=== PATIENT | female | born 1985 | race Caucasian/White ===

== ENCOUNTER 2018-12-20 09:05 | Inpatient (IN) | payer MEDICAID, OTHER ==
--- NOTE | 2018-12-20 10:00 | History and Physical Report ---
History of Present Illness Date of admission: 12/20/18 09:05 Chief complaint: scheduled repeat csection History of present illness: 33yo a 39 5/7 weeks presents for scheduled repeat csection. JORY 12/18/18 consistent with 7 wk sono. She reports good movement, no loss of fluid and no vaginal bleeding. She received care at a [facility]. She has had routine care since 7 weeks gestation complicated by a +Quad screen for Down syndrome for which she declined referral to maternal medicine due to finances. She also was treated for influenza with Tamiflu. She is rubella non-immune. Past History Past Surgical History: section - Obstetrical History : 2 Para: 1 Spontaneous Abortions: 2 Number of Living Children: 1 Medications and Allergies Allergies Allergy/AdvReac Type Severity Reaction Status Date / Time No Known Allergies Allergy Unverified 11/04/15 08:18 Home Medications Medication Instructions Recorded Confirmed Last Taken Type Docusate Sodium [Colace CAP] 100 mg PO BID #60 capsule 11/05/15 Unknown Rx Ferrous Sulfate [Feosol 325 MG tab] 325 mg PO TID #90 tablet 11/05/15 Unknown Rx Ibuprofen [Motrin 800 MG tab] 800 mg PO Q8HR PRN #90 tablet 11/05/15 Unknown Rx oxyCODONE /ACETAMINOPHEN [Percocet 1 tab PO Q6HR PRN #30 tablet 11/05/15 Unknow n Rx 5/325 mg] - Obstetrical FHR: auscultation normal Results Result Diagrams: 12/20/18 10:40 All other labs normal. Assessment and Plan - Patient Problems (1) 39 weeks gestation of Current Visit: Yes Status: Acute (2) Previous section Current Visit: Yes Status: Acute Plan to address problem: IVF Routine labs SCDs Ancef 2g IV Informed consent signed and in chart. Proceed to repeat section. (3) Abnormal quad screen Current Visit: Yes Status: Acute
[2018-12-20] MEDS ORDERED: ANCEF/STERILE WATER 2 GM/20 ML 2 GM/20 ML SYRINGE IV NR ×2 (11:00→12:48)
[2018-12-20] MEDS ORDERED: PITOCin/NS 20 UNIT/1000ML DRIP 20 UNITS/1,000 ML BAG IV SCH ×2 (11:00→15:00)
[2018-12-20] MEDS ORDERED: BICITRA PO NR (11:00)
[2018-12-20] MEDS ORDERED: REGLAN IV NR (11:00)
[2018-12-20] MEDS ORDERED: PEPCID IV NR (11:00)
--- NOTE | 2018-12-20 11:07 | Anesthesia Day of Surgery ---
Anesthesia Day of Surgery - Day of Surgery Patient Examined: Yes Patient H&P Reviewed: Yes Patient is NPO: Yes Beta Blockers: No Cardiac Clearance: No Pulmonary Clearance: No Cody's Test: N/A
[2018-12-20] MEDS ORDERED: PHENERGAN PO PRN (11:11)
[2018-12-20] MEDS ORDERED: PHENERGAN PR PRN (11:11)
[2018-12-20] MEDS ORDERED: NARCAN 0.4 MG/1 ML IV PRN (11:11)
[2018-12-20] MEDS ORDERED: ZOFRAN IV PRN (11:11)
--- NOTE | 2018-12-20 11:11 | Anesthesia Consultation ---
Anesthesia Consult and Med Hx - Airway Anesthetic Teeth Evaluation: Good ROM Head & Neck: Adequate Mental/Hyoid Distance: Adequate Mallampati Class: Class II Intubation Access Assessment: Probably Good - Pulmonary Exam CTA: Yes - Cardiac Exam Cardiac Exam: RRR - Pre-Operative Health Status ASA Pre-Surgery Classification: ASA2 Proposed Anesthetic Plan: Epidural, Spinal - Pre-Anesthesia Comment Pre-Anesthesia Comments: complained of prolonged leg numbness after last section, 24 hrs, complaints of right parasthesia low abd to mid thigh - Pulmonary Hx Smoking: No Hx Asthma: No COPD: No Hx Pneumonia: No - Cardiovascular System Hx Hypertension: No - Central Nervous System Hx Seizures: No Hx Psychiatric Problems: No - Endocrine Hx Renal Disease: No Hx End Stage Renal Disease: No Hx Hypothyroidism: No Hx Hyperthyroidism: No - Hematic Hx Anemia: No Hx Sickle Cell Disease: No - Other Systems Hx Alcohol Use: No
[2018-12-20] MEDS: LACTATED RINGERS 1,000 ML IV SCH ×3 (11:45→21:21)
[2018-12-20 11:52] LABS: Basophils # (Auto) 0.1 K/mm3 (0.0-0.1); Basophils % (Auto) 0.8 % (0.0-1.8); Eosinophils # (Auto) 0.1 K/mm3 (0.0-0.4); Eosinophils % (Auto) 0.7 % (0.0-4.3); Hematocrit 33.8 % (30.3-42.9); Hemoglobin 11.3 gm/dl (10.1-14.3); Lymphocytes # (Auto) 1.7 K/mm3 (1.2-5.4); Lymphocytes % (Auto) 20.1 % (13.4-35.0); Mean Corpuscular HGB Conc 34 % (30-34); Mean Corpuscular Volume 92 fl (79-97); Monocytes # (Auto) 0.5 K/mm3 (0.0-0.8); Monocytes % (Auto) 5.9 % (0.0-7.3); Platelet Count 272 K/mm3 (140-440); Red Blood Count 3.69 M/mm3 (3.65-5.03); Red Cell Distribution Width 17.9 % (13.2-15.2)
[2018-12-20] MEDS ORDERED: SODIUM CHLORIDE FLUSH SYRINGE 10 ML IV NR ×2 (12:00→15:00)
[2018-12-20] MEDS ORDERED: XYLOCAINE 2%/ EPI 1:200,000 INFILTRATI ONE (12:21)
[2018-12-20] MEDS ORDERED: ASTRAMORPH PF 10MG/10ML ONE (12:32)
[2018-12-20] MEDS ORDERED: ZOFRAN ONE (12:32)
[2018-12-20] MEDS ORDERED: ceFAZolin 2 GM in NACL 0.9% 100 ML IV ONE (12:48)
[2018-12-20] MEDS ORDERED: LACTATED RINGERS 1,000 ML ONE ×2 (12:59→13:49)
[2018-12-20] MEDS ORDERED: NEO SYNEPHRINE/NS Syringe(OR USE) IV ONE ×2 (12:59→13:38)
[2018-12-20] MEDS ORDERED: METHERGINE IM ONE (13:44)
[2018-12-20] MEDS ORDERED: DILAUDID ONE (13:59)
[2018-12-20] MEDS ORDERED: VERSED ONE (14:11)
[2018-12-20] MEDS ORDERED: LANSINOH TP PRN (14:34)
[2018-12-20] MEDS ORDERED: MORPHINE IV PRN (14:34)
[2018-12-20] MEDS ORDERED: MYLICON PO PRN (14:34)
[2018-12-20] MEDS ORDERED: MILK OF MAGNESIA PO PRN (14:34)
[2018-12-20] MEDS ORDERED: TUCKS PAD TP PRN (14:34)
[2018-12-20] MEDS ORDERED: TORADOL ONE (14:39)
--- NOTE | 2018-12-20 15:02 | Operative Report ---
Operative Report Operative Report: PREOP Diagnosis 1. 39 5/7 weeks gestation 2. Previous section 3. Keloid lesion in previous section scar Postop Diagnosis 1. 39 3/7 weeks gestation 2. Previous section 3. Keloid lesion in previous section scar 4. Small intramural fibroids Procedure: Repeat low-transverse section Findings 1. Viable male in the vertex position, weighing 8lb 10oz, 3903g APGARS 8 at 1 min, 9 at 5 min 2. Small intramural uterine fibroids - right anterior body 3. Normal bilateral tubes 4. membranes adherent to endometrium Surgeon 1. Pam Ahmadi MD Anesthesia: 1. Epidural I/O: EBL: 650ml UOP: 225ml, clear urine IVF 2500ml LR Specimens removed: 1. Placenta - adherent membranes Complications: none Disposition: Patient taken to recovery room in stable condition INDICATIONS: The patient is a 33yo at 39 5/7weeks that presented for scheduled repeat section. The patient was consented and the risks including but not limited to bleeding, infections, injury to surrounding organs, potential injury to mother/infant were discussed. All questions were answered and informed consent signed. STOP PROCEDURE: The patient was taken to the OR in stable condition. Adequate anesthesia was achieved with epidural anesthesia. A adame catheter was placed. She wore SCDs for DVT prophylaxis. And received Ancef for infection prophylaxis. The patient was prepped and draped in the usual fashion and an additional time out was done. A Pfannestiel incision was made over the previous uterine scar. Of note there was a small 1cm keloid scar at the midline of the previous incision. The fascia was incised and the incision extended laterally. The superior and inferior aspect of the rectus muscle was dissected off of the fascia. Entry into the peritoneum was achieved. The incision was extended caudally. An Efra-O retractor was placed into the peritoneal and abdominal cavity. A low-transverse incision made made in the uterus and extended laterally. membranes were ruptured and noted to be clear. The head was brought to the hysterotomy and mouth bulb suctioned. The body was delivered. The cord was clamped x 2, cut and infant handed off to awaiting street photographer staff. The placenta was delivered intact and 40 units of IV Pitocin were added to LR fluids. The membranes were noted to be adhered to the uterus diffusely. The membranes were removed manually. The uterus was cleaned of all clots. The uterus was noted to be boggy and Methergine 0.2mg IM was administered. The uterus was repaired with 0-Vicryl in a running, locked stitch and an imbricating layer of the same suture was used. The fascia was closed with 0 Vicryl. Subcutaneous layer reapproximated with 2-0 Vicryl. The skin closed with 4-0 Vicryl. The patient tolerated the procedure well. All counts were correct x 3. Urine was noted to be clear at close of case. I was present and scrubbed for the entire procedure. The patient was taken to the recovery room in stable condition.
[2018-12-20] MEDS: PERCOCET 5/325 PO PRN (21:22)
[2018-12-21] MEDS: IBUPROFEN PO PRN ×2 (02:37→10:24)
[2018-12-21] MEDS: PERCOCET 5/325 PO PRN ×4 (03:30→21:06)
[2018-12-21] MEDS ORDERED: BENADRYL IV NR (03:44)
[2018-12-21 05:00] LABS: Hemoglobin 8.2 gm/dl (10.1-14.3)
[2018-12-21] MEDS ORDERED: M-M-R II VACCINE SUB-Q ONE (06:35)
[2018-12-21] MEDS ORDERED: BOOSTRIX IM ONE (07:00)
[2018-12-21] MEDS ORDERED: FEOSOL PO ONE (10:00)
--- NOTE | 2018-12-21 10:11 | Progress Note ---
Assessment and Plan A: /postop day 1 S/P repeat low transverse section. Anemia. Heart murmur (new). P: Encouraged ambulation. Iron supplementation ordered. Advance diet when passing gas. Hospitalist consult ordered for new heart murmur. Subjective - Subjective Date of service: 12/21/18 Principal diagnosis: /postop day 1 S/P repeat LTCS Interval history: /postop day 1 S/P repeat low transverse section. Patient is doing well. She reports she is voiding without difficulty. Ambulating well. Not passing gas yet. Tolerating a clear liquid diet without nausea or vomiting. Patient reports small amount of lochia. Patient denies headache, chest pain, cough, shortness of breath, dizziness, leg pain, or heavy vaginal bleeding. Patient reports: appetite normal, voiding normally, pain well controlled, ambulating normally, no dizzy ambulation, no flatus, no nauseated : doing well Objective - Vital Signs Latest vital signs: Vital Signs Temp Pulse Resp BP BP Pulse Ox 12/21/18 01:06 98.7 F 74 18 112/72 12/20/18 19:30 98.7 F 69 16 117/72 12/20/18 16:40 98.1 F 108 H 20 140/62 12/20/18 16:30 97.8 F 66 15 113/50 99 12/20/18 16:00 64 16 115/55 100 12/20/18 15:45 66 14 121/59 99 12/20/18 15:30 97.6 F 73 22 120/60 100 12/20/18 15:15 63 18 114/54 100 12/20/18 15:00 68 18 123/58 100 12/20/18 14:55 61 18 111/57 100 12/20/18 14:50 60 15 124/56 100 12/20/18 14:45 62 21 112/52 92 12/20/18 14:42 97 F L 61 17 130/61 96 12/20/18 12:03 64 115/58 12/20/18 12:01 99.4 F 64 16 115/58 Intake and Output 12/20/18 12/21/18 12/21/18 23:59 07:59 15:59 Output Total 800 1400 Balance -800 -1400 Output: Urine 800 1400 Indwelling Catheter 800 Void 1400 Other: Total, Output Amount 800 600 # Voids Void 1 - Exam Cardiovascular: Present: Regular rate, Other (Murmur heard) Lungs: Present: Clear to auscultation Abdomen: Present: normal appearance, soft, normal bowel sounds. Absent: distention, tenderness, guarding, rigidity Uterus: Present: normal, firm, fundal height below umbilicus Extremities: Present: normal. Absent: tenderness, edema Incision: Present: normal, dry, intact, dressed - Labs Labs: Abnormal lab results 12/20/18 12/21/18 Range/Units 10:40 04:21 Hgb 8.2 L D (10.1-14.3) gm/dl Hct 24.0 L D (30.3-42.9) % RDW 17.9 H (13.2-15.2) % Seg Neutrophils % 72.5 H (40.0-70.0) %
[2018-12-21] MEDS ORDERED: AFLURIA QUAD 2018-2019 SYRINGE IM ONE (12:00)
--- NOTE | 2018-12-21 17:06 | Consultation ---
History of Present Illness - Reason for Consult Consult date: 12/21/18 New heart murmur Requesting physician: REGINA ZEPEDA - History of Present Illness 33-year-old female patient. Underwent uncomplicated repeat low transverse section on 12/20/2018. Today during rounds CNM noticed a new heart murmur. Requested hospitalist service for consult When I evaluated the patient, the patient denies any chest pain or shortness of breath Denies headache dizziness weakness or numbness Patient denies any history of coronary artery disease congestive heart failure or palpitation Past History Past Medical History: No medical history Past Surgical History: Social history: lives with family. denies: smoking, alcohol abuse, prescription drug abuse Family history: hypertension Medications and Allergies Allergies Allergy/AdvReac Type Severity Reaction Status Date / Time No Known Allergies Allergy Unverified 11/04/15 08:18 Home Medications Medication Instructions Recorded Confirmed Last Taken Type Docusate Sodium [Colace CAP] 100 mg PO BID #60 capsule 11/05/15 12/20/18 Unknown Rx Ferrous Sulfate [Feosol 325 MG tab] 325 mg PO TID #90 tablet 11/05/15 12/20/18 Unknown Rx Ibuprofen [Motrin 800 MG tab] 800 mg PO Q8HR PRN #90 tablet 11/05/15 12/20/18 Unknown Rx oxyCODONE /ACETAMINOPHEN [Percocet 1 tab PO Q6HR PRN #30 tablet 11/05/15 Unknown Rx 5/325 mg] Ferrous Sulfate [Feosol 325 MG tab] 325 mg PO BID 30 Days #60 tablet 12/20/18 Unknown Rx Ibuprofen 800 mg PO Q6H PRN 10 Days #30 12/20/18 Unknown Rx tablet MDD 3200mg oxyCODONE /ACETAMINOPHEN [Percocet 1 tab PO Q4HR PRN 14 Days #30 tab 12/20/18 Unknown Rx 5/325] Active Meds: Active Medications Oxytocin/Sodium Chloride (Pitocin/Ns 20 Unit/1000ml Drip) 20 units in 1,000 mls @ 0 mls/hr IV TITR WILLY Oxytocin/Sodium Chloride (Pitocin/Ns 20 Unit/1000ml Drip) 20 units in 1,000 mls @ 250 mls/hr IV DIRECT WILLY Ibuprofen (Motrin) 800 mg PO Q6H PRN PRN Reason: Pain, Mild (1-3) Last Admin: 12/21/18 10:24 Dose: 800 mg Documented by: Magnesium Hydroxide (Milk Of Magnesia) 30 ml PO QHS PRN PRN Reason: Constip Unrelieved By Senna Last Admin: 12/20/18 21:22 Dose: 30 ml Documented by: Morphine Sulfate (Morphine) 4 mg IV Q4H PRN PRN Reason: Pain , Severe (7-10) Multi-Ingredient Ointment (Lansinoh) 1 applic TP PRN PRN PRN Reason: dryness/cracking Naloxone HCl (Narcan 0.4 Mg/1 Ml) 0.2 mg IV Q2MIN PRN PRN Reason: Res Rate </= 8 or 02 SAT < 92% Ondansetron HCl (Zofran) 4 mg IV Q8H PRN PRN Reason: Nausea And Vomiting Last Admin: 12/20/18 21:22 Dose: 4 mg Documented by: Oxycodone/Acetaminophen (Percocet 5/325) 1 tab PO Q6H PRN PRN Reason: Pain, Moderate (4-6) Last Admin: 12/21/18 15:28 Dose: 1 tab Documented by: Promethazine HCl (Phenergan) 25 mg PO Q6H PRN PRN Reason: Nausea And Vomiting Promethazine HCl (Phenergan) [address] Q6H PRN PRN Reason: Nausea And Vomiting Simethicone (Mylicon) 80 mg PO Q6H PRN PRN Reason: Gas pain Sodium Chloride (Sodium Chloride Flush Syringe 10 Ml) 10 ml IV PRN NR Stop: 12/23/18 11:59 Witch Michaela/Glycerin (Tucks Pad) 1 each TP PRN PRN PRN Reason: Hemorrhoids/cleansing/soothing Review of Systems Constitutional: no weight loss, no weight gain, no fatigue, no weakness Ears, nose, mouth and throat: no nasal congestion, no nasal discharge Cardiovascular: no chest pain, no orthopnea, no palpitations, no shortness of breath Respiratory: no cough, no shortness of breath Gastrointestinal: no nausea, no vomiting, no diarrhea Genitourinary Female: other (post ) Musculoskeletal: no myalgias, no arthritis Integumentary: no rash, no lesions Neurological: no weakness Psychiatric: no anxiety, no depression Endocrine: no cold intolerance, no heat intolerance Hematologic/Lymphatic: no easy bruising, no easy bleeding Allergic/Immunologic: no urticaria, no allergic rhinitis Exam - Constitutional Vitals: Temp Pulse Resp BP Pulse Ox 98.7 F 74 18 112/72 99 12/21/18 01:06 12/21/18 01:06 12/21/18 01:06 12/21/18 01:06 12/20/18 16:30 General appearance: Present: no acute distress, well-nourished, obese - EENT Eyes: Present: PERRL, EOM intact - Neck Neck: Present: supple, normal ROM - Respiratory Respiratory effort: normal Respiratory: bilateral: diminished, negative: rales, rhonchi, wheezing - Cardiovascular Rhythm: regular Heart Sounds: Present: S1 & S2, systolic murmur (precordium) - Extremities Extremities: no ischemia, No edema - Abdominal General gastrointestinal: Present: soft, non-tender, non-distended, normal bowel sounds - Integumentary Integumentary: Present: clear, warm - Musculoskeletal Musculoskeletal: strength equal bilaterally - Psychiatric Psychiatric: appropriate mood/affect, cooperative - Neurologic Neurologic: CNII-XII intact, moves all extremities Results - Labs CBC & Chem 7: 12/21/18 04:21 Labs: Abnormal lab results 12/21/18 Range/Units 04:21 Hgb 8.2 L D (10.1-14.3) gm/dl Hct 24.0 L D (30.3-42.9) % Assessment and Plan --New Heart Murmur: Systolic murmur in a female patient Probably secondary to hyperdynamic circulation. Patient is asymptomatic, check echocardiogram Rule out cardiomyopathy, LV function, evaluation of the valves cardiology consultation, And supportive care -- state; management per OB Continue current management. F/U echocardiogram Thank you for this consultation will follow the patient along with you
[2018-12-22] MEDS: IBUPROFEN PO PRN ×3 (06:08→19:05)
--- NOTE | 2018-12-22 09:40 | Consultation ---
History of Present Illness Consult date: 12/22/18 History of present illness: Cardiology consulted for the evaluation of cardiac murmur 33-year-old female patient. Underwent uncomplicated repeat low transverse leilani arean section on 12/20/2018. Today during rounds CNM noticed a new heart murmur. Patient denies cardiac complaints Past History Past Medical History: No medical history Past Surgical History: Social history: lives with family. denies: smoking, alcohol abuse, prescription drug abuse Family history: hypertension Medications and Allergies Allergies Allergy/AdvReac Type Severity Reaction Status Date / Time No Known Allergies Allergy Unverified 11/04/15 08:18 Home Medications Medication Instructions Recorded Confirmed Last Taken Type Docusate Sodium [Colace CAP] 100 mg PO BID #60 capsule 11/05/15 12/20/18 Unknown Rx Ferrous Sulfate [Feosol 325 MG tab] 325 mg PO TID #90 tablet 11/05/15 12/20/18 Unknown Rx Ibuprofen [Motrin 800 MG tab] 800 mg PO Q8HR PRN #90 tablet 11/05/15 12/20/18 Unknown Rx oxyCODONE /ACETAMINOPHEN [Percocet 1 tab PO Q6HR PRN #30 tablet 11/05/15 12/20/18 Unknown Rx 5/325 mg] Ferrous Sulfate [Feosol 325 MG tab] 325 mg PO BID 30 Days #60 tablet 12/20/18 Unknown Rx Ibuprofen 800 mg PO Q6H PRN 10 Days #30 12/20/18 Unknown Rx tablet MDD 3200mg oxyCODONE /ACETAMINOPHEN [Percocet 1 tab PO Q4HR PRN 14 Days #30 tab 12/20/18 Unknown Rx 5/325] Active Meds: Active Medications Oxytocin/Sodium Chloride (Pitocin/Ns 20 Unit/1000ml Drip) 20 units in 1,000 mls @ 0 mls/hr IV TITR WILLY Oxytocin/Sodium Chloride (Pitocin/Ns 20 Unit/1000ml Drip) 20 units in 1,000 mls @ 250 mls/hr IV DIRECT WILLY Ibuprofen (Motrin) 800 mg PO Q6H PRN PRN Reason: Pain, Mild (1-3) Last Admin: 12/22/18 06:08 Dose: 800 mg Documented by: Magnesium Hydroxide (Milk Of Magnesia) 30 ml PO QHS PRN PRN Reason: Constip Unrelieved By Senna Last Admin: 12/20/18 21:22 Dose: 30 ml Documented by: Morphine Sulfate (Morphine) 4 mg IV Q4H PRN PRN Reason: Pain , Severe (7-10) Multi-Ingredient Ointment (Lansinoh) 1 applic TP PRN PRN PRN Reason: dryness/cracking Naloxone HCl (Narcan 0.4 Mg/1 Ml) 0.2 mg IV Q2MIN PRN PRN Reason: Res Rate </= 8 or 02 SAT < 92% Ondansetron HCl (Zofran) 4 mg IV Q8H PRN PRN Reason: Nausea And Vomiting Last Admin: 12/20/18 21:22 Dose: 4 mg Documented by: Oxycodone/Acetaminophen (Percocet 5/325) 1 tab PO Q6H PRN PRN Reason: Pain, Moderate (4-6) Last Admin: 12/21/18 21:06 Dose: 1 tab Documented by: Promethazine HCl (Phenergan) 25 mg PO Q6H PRN PRN Reason: Nausea And Vomiting Promethazine HCl (Phenergan) 25 mg [place] Q6H PRN PRN Reason: Nausea And Vomiting Simethicone (Mylicon) 80 mg PO Q6H PRN PRN Reason: Gas pain Sodium Chloride (Sodium Chloride Flush Syringe 10 Ml) 10 ml IV PRN NR Stop: 12/23/18 11:59 Witch Michaela/Glycerin (Tucks Pad) 1 each TP PRN PRN PRN Reason: Hemorrhoids/cleansing/soothing Review of Systems All systems: negative Physical Examination Vital Signs Temp Pulse Resp BP 99.4 F 64 16 115/58 12/20/18 12:01 12/20/18 12:01 12/20/18 12:01 12/20/18 12:01 General appearance: no acute distress HEENT: Positive: PERRL Neck: Positive: neck supple Cardiac: Positive: Reg Rate and Rhythm, Systolic Murmur Lungs: Positive: Normal Exam Abdomen: Positive: Soft Results 12/21/18 04:21 Assessment and Plan Cardiac murmur Grade 2/6 early peaking at the RUSB Acute blood loss anemia Recommendations: Echocardiogram is warranted but non-urgent. Can be done as inpatient if patient stays in hospital or outpatient in office. Patient given our contact information No further cardiac work-up needed
--- NOTE | 2018-12-22 10:20 | Progress Note ---
Assessment and Plan A: /postop day 2 S/P repeat low transverse section. Anemia secondary to and blood loss. Heart murmur. P: Continue iron supplementation. Continue current management. Patient is awaiting echo. Subjective - Subjective Date of service: 12/22/18 Principal diagnosis: /postop day 2 S/P repeat LTCS Interval history: /postop day 2 S/P repeat low transverse section. Patient is doing well. She reports she is voiding without difficulty. Ambulating well. Passing gas and has had a BM. Tolerating a regular diet without nausea or vomiting. Patient denies headache, chest pain, cough, shortness of breath, dizziness, fatigue, leg pain, abdominal pain, or heavy bleeding. Patient reports: appetite normal, voiding normally, pain well controlled, flatus, bowel movement, ambulating normally, no dizzy ambulation, no nauseated : doing well Objective - Vital Signs Latest vital signs: Vital Signs Temp Pulse Resp BP Pulse Ox 12/22/18 06:08 18 12/22/18 01:40 97.9 F 59 L 18 90/49 96 12/21/18 22:06 18 12/21/18 21:06 18 Intake and Output 12/21/18 12/22/18 12/22/18 23:59 07:59 15:59 Intake Total 300 Balance 300 Intake: Oral 300 Other: Total, Intake Amount 300 # Voids Void 1 - Exam Cardiovascular: Present: Regular rate, Other (Murmur) Abdomen: Present: normal appearance, soft, normal bowel sounds. Absent: distention, tenderness, guarding, rigidity Uterus: Present: normal, firm, fundal height below umbilicus. Absent: bogginess, tenderness Extremities: Present: normal, edema (mild pedal edema bilaterally). Absent: tenderness Incision: Present: normal, dry, intact, dressed
--- NOTE | 2018-12-22 17:15 | Event Note ---
Date: 12/22/18 Cardiology is evaluated new heart murmur, f/u echocardiogram Management per cardiology. We'll sign off.
[2018-12-22] MEDS: PERCOCET 5/325 PO PRN (20:54)
[2018-12-23] MEDS: PERCOCET 5/325 PO PRN ×2 (04:25→13:41)
[2018-12-23] MEDS: IBUPROFEN PO PRN ×2 (04:25→13:41)
--- NOTE | 2018-12-23 10:42 | Progress Note ---
Assessment and Plan A: POD #3 Heart Murmur Asymptomatic Anemia P: Follow Routine PostOp Orders Continue FeSO4 as ordered Cardiology Consulted and Cleared D/C Home today RTO in One Week Subjective - Subjective Date of service: 12/23/18 Principal diagnosis: /postop day 2 S/P repeat LTCS Patient reports: appetite normal, voiding normally, pain well controlled, flatus, ambulating normally, other (Denies shortness of breath and chest pain) : doing well, bottle feeding (and ) Objective - Vital Signs Latest vital signs: Vital Signs Temp Pulse Resp BP BP Pulse Ox 12/23/18 08:17 97.5 F L 56 L 20 102/47 95 12/23/18 01:25 97.5 F L 55 L 18 103/57 12/22/18 19:05 20 12/22/18 18:16 98.7 F 61 20 100/44 97 12/22/18 14:02 98.1 F 71 20 103/52 97 12/22/18 12:56 20 Intake and Output 12/22/18 12/23/18 12/23/18 22:59 06:59 14:59 Intake Total 240 360 Balance 240 360 Intake: Intake, Free Water 240 360 Other: # Voids Void 2 2 - Exam Breasts: Present: normal Cardiovascular: Present: Regular rate Lungs: Present: Clear to auscultation, Normal air movement Abdomen: Present: normal appearance, soft, normal bowel sounds Uterus: Present: normal, firm, fundal height below umbilicus Extremities: Present: normal Incision: Present: normal, dry, intact
--- NOTE | 2018-12-23 10:43 | Discharge Summary ---
Providers - Providers Date of Admission: 12/20/18 09:05 Date of discharge: 12/23/18 Attending physician: ELPIDIO GANN MD 12/21/18 10:08 Consult to Physician [CONS] Urgent Comment: Consulting Provider: HELEN LUU Physician Instructions: Reason For Exam: Heart murmur; /postop day 1 12/21/18 12:29 Consult to Physician [CONS] Routine Comment: Consulting Provider: HEYDI KAMARA Physician Instructions: Reason For Exam: heart murmur (new) Primary care physician: ELPIDIO GANN MD Hospitalization Reason for admission: section Delivery: Procedure: repeat low transverse Episiotomy: none Laceration: none Incision: normal, dry, intact Other procedures: none complications: none Discharge diagnosis: IUP at term delivered baby: male Condition at discharge: Good Disposition: DC-01 TO HOME OR SELFCARE Plan - Discharge Medications Prescriptions: Ferrous Sulfate [Feosol 325 MG tab] 325 mg PO BID 30 Days #60 tablet Ibuprofen 800 mg PO Q6H PRN 10 Days #30 tablet MDD 3200mg PRN Reason: Pain, Moderate (4-6) oxyCODONE /ACETAMINOPHEN [Percocet 5/325] 1 tab PO Q4HR PRN 14 Days #30 tab PRN Reason: Pain , Severe (7-10) - Provider Discharge Summary Activity: routine, no sex for 6 weeks, no heavy lifting 4 weeks Diet: routine Instructions: routine Additional instructions: [] Smoking cessation referral if applicable(refer to patient education folder for contact #) [] Refer to [facility]'s [facility] Booklet Call your doctor immediately for: * Fever > 100.5 * Heavy vaginal bleeding ( >1 pad per hour) * Severe persistent headache * Shortness of breath * Reddened, hot, painful area to leg or breast * Drainage or odor from incision. * Keep incision clean and dry at all times and follow doctor's instructions regarding bathing/showering - Follow up plan Follow up: ELPIDIO GANN MD [Primary Care Provider] - 7 Days
[2018-12-23] MEDS ORDERED: M-M-R II VACCINE SUB-Q ONE (15:15)
[2018-12-23 17:07] VITALS: BP 107/53
== END 2018-12-23 17:00 | disposition home or self-care (01) | DRG 786 ==
LOC: APU 09:05 → OB 17:07
PROVIDERS: ADMIT Obstetrics & Gynecology; ATTEND Obstetrics & Gynecology
PROC: 10D00Z1 Extraction of Products of Conception, Low, Open Approach (ICD-10-PCS; principal; 2018-12-20)
PROC: 3E0234Z Introduction of Serum, Toxoid and Vaccine into Muscle, Percutaneous Approach (ICD-10-PCS; 2018-12-23)
DX: O34.211 Maternal care for low transverse scar from previous cesarean delivery (principal); O99.42 Diseases of the circulatory system complicating childbirth; D62 Acute posthemorrhagic anemia; O99.02 Anemia complicating childbirth; R01.1 Cardiac murmur, unspecified; O34.13 Maternal care for benign tumor of corpus uteri, third trimester; O65.5 Obstructed labor due to abnormality of maternal pelvic organs; D25.1 Intramural leiomyoma of uterus; Z3A.39 39 weeks gestation of pregnancy; Z37.0 Single live birth; Z82.49 Family history of ischemic heart disease and other diseases of the circulatory system; Z79.899 Other long term (current) drug therapy; Z23 Encounter for immunization
CPT/HCPCS: 36415; 85014; 85018; 85025; 86592; 86850; 86900; 86901; 88307; 90686; 90707; 93306; G0378; J0690; J1170; J1200; J1885; J2210; J2250; J2274; J2370; J2405; J2590; J2765; J7120